=== PATIENT | male | born 1985 | race Native Hawaiian/Other Pacific Islander ===

== ENCOUNTER 2019-03-14 14:04 | Emergency (ER) | payer OTHER ==
[~2019-03-14] VITALS: Ht 175.3 cm; Wt 81.2 kg
[2019-03-14 14:53] VITALS: TEMP 98.3
[2019-03-14 16:42] LABS: PLATELET COUNT 140 K/uL (142-355)
[2019-03-14 18:50] VITALS: BP 154/84
== END 2019-03-14 18:45 | disposition home or self-care (01) ==
LOC: ED 14:04
PROVIDERS: Emergency Medicine
DX: K74.69 Other cirrhosis of liver (principal); R16.1 Splenomegaly, not elsewhere classified; K76.6 Portal hypertension
CPT/HCPCS: 36415; 80053; 81000; 82150; 83690; 85027; 96361; 96374; 99284; J1885; Q9963